=== PATIENT | female | born 1975 | race Caucasian/White ===

== ENCOUNTER 2017-02-26 15:46 | Emergency (ER) | payer OTHER ==
[2017-02-26] MEDS ORDERED: ONDANSETRON HCL/PF 2 MG/ML VIAL IV ONE (16:18)
[2017-02-26] MEDS ORDERED: NORMAL SALINE 1,000 ML IV ONE (16:18)
[2017-02-26] MEDS ORDERED: ONDANSETRON HCL/PF 2 MG/ML VIAL ONE (16:25)
[2017-02-26 16:39] LABS: Hematocrit 35.9 % (37.0-47.0); Hemoglobin 12.7 gm/dL (12.5-16.0); Mean Cell Volume 91.6 fl (78-100); Mean Corpuscular Hemoglobin 32.4 pg (27-31); Mean Corpuscular Hgb Conc 35.4 g/dl (32-36); Neutrophil # 2.8 K/mm3 (1.3-6.0); Neutrophil % 46.6 % (42-75.0); Platelet Count 214 K/mm3 (150-450); Red Blood Count 3.92 M/mm3 (4.2-5.4); White Blood Count 5.9 K/mm3 (4.0-10.5)
--- NOTE | 2017-02-26 16:41 | ERNOTE ---
GI Bleeding/Rectal Pain ER Presenting Symptoms: rectal bleeding Time Seen by Provider: 02/26/17 16:10 Source: patient Exam Limitations: no limitations Immunizations: IMMUNIZATION HX Immunizations Up to Date Yes History of Influenza Vaccine No Hx Pneumococcal Vaccination No Allergies/Adverse Reactions: Allergies No Known Allergies Allergy (Verified 02/26/17 15:56) Home Medications: HOME MEDICATIONS Naproxen [Naprosyn] 500 mg PO BID 06/26/15 [Last Taken Unknown] ALPRAZolam [Xanax] 0.5 mg PO Q8H PRN 09/28/15 [Last Taken Unknown] Lisinopril [Zestril] 10 mg PO DAILY 02/26/17 [Last Taken Unknown] Tramadol HCl [Rybix Odt] 50 mg PO TID 02/26/17 [Last Taken Unknown] Narrative: Patient had an episode of blood in the stool. Patient complains of only mild cramping pain and in no specific area in the abdomen Timing: other - improving Quality/Severity: Present: mild Nausea/Vomiting: Present: blood Abdominal Pain: Present: diffuse Rectal Bleeding: Present: blood mixed with stool Review of Systems - Review of Systems Constitutional: Present: See HPI EYE: Present: no symptoms reported ENT: Present: no symptoms reported Respiratory: Present: no symptoms reported Cardiology: Present: no symptoms reported Gastrointestinal/Abdominal: Present: other - blood and stool is noted Genitourinary: Present: no symptoms reported Musculoskeletal: Present: no symptoms reported Skin: Present: no symptoms reported Neurological: Present: no symptoms reported Endocrine: Present: no symptoms reported Hematologic/Lymphatic: Present: no symptoms reported Psych: Present: no symptoms reported - Patient's Past Medical History Patient History - Medical: Anxiety, Depression, Headache Patient History - Cardiac/Respiratory: No pertinent hx Patient History - Cancer: No Hx of Cancer Patient History - Surgical Procedures: D & C, Tubal Ligation, Other Patient History - Other: None LMP (females 10-50): Menopausal - Family History Mother Family History - Medical: History Unknown Family History - Cardiac/Respiratory: History Unknown Father Family History - Medical: History Unknown Family History - Cardiac/Respiratory: History Unknown - Social History Living Situations: home Abuse History: No History of abuse Psych History: Hx of Anxiety, Hx of Depression, Current tx/ever been on anti- depressants or anti-anxiety meds Smoking Status: Current every day smoker Have you smoked in the past 12 months: Yes Alcohol Use: rarely Drug Use: none - Immunizations Immunizations Up to Date: Yes Hx Pneumococcal Vaccination: No History of Influenza Vaccine: No Physical Exam - Physical Exam General Appearance: Present: wd/wn, alert, mild distress Eye Exam: Normal inspection: bilateral, PERRL: bilateral Ears, Nose, Throat: Present: normal ENT inspection, H, normal pharynx Neck: Present: normal inspection, nontender Respiratory: Present: no respiratory distress, normal breath sounds, no accessory muscle use, chest nontender, lungs clear Cardiovascular/Chest: Present: regular rate, rhythm, no murmur, normal peripheral pulses Gastrointestinal/Abdominal: Present: normal bowel sounds, nondistended, soft, no organomegaly, tenderness - generalized and diffuse Rectal Exam: Present: blood-streaked stool, hemorrhoids Back Exam: Present: normal inspection, normal range of motion Extremity Exam: Present: normal inspection, non-tender, no edema, normal range of motion Neurological Exam: Present: alert, oriented, normal mood/affect Skin Exam: Present: normal color, warm/dry Lymphatic Exam: Present: no adenopathy ED Progress - Results and Orders Patient's Lab Results:: I have reviewed the patient's lab results. - Vital Signs Patient's Vital Signs:: I have reviewed the patient's vital signs. Vital Signs: Vital Signs 02/26/17 15:52 Temperature 36.3 C L Pulse Rate 72 Respiratory 16 Rate Blood Pressure 157/89 O2 Sat by Pulse 99 Oximetry - X-Ray X-Ray #1 X-Ray: abdomen Interpretation: Reviewed by me - Progress/Reassessment Chief Complaint: GI Bleed Plan - Plan Plan: Patient's H&H is stable as are her vital signs, and I discussed the case with Dr. Velazquez and he will arrange for a colonoscopy on her as soon as possible. Departure Clinical Impression: Rectal bleed - Departure Disposition: Home self-care Condition: Good Instructions: Hemorrhoids, [id number] Additional Instructions: Call Dr. Vealzquez in the morning for an appointment Referrals: Herlinda Morfin MD [Primary Care Provider] - Fady Velazquez MD [Associate] -
[2017-02-26 16:57] LABS: BUN/Creatinine Ratio 19.1 (9.0-21.6)
[2017-02-26 16:58] LABS: Albumin * 3.9 gm/dl (3.4-5.0); Anion Gap 10.3 mmol/L (6.8-13.8); Bilirubin, Total 0.4 mg/dL (0.0-1.1); Ca. Corrected For Albumin 8.6 mg/dL (8.4-10.2); Calcium * 8.8 mg/dL (7.9-10.9); Carbon Dioxide 28.7 mmol/L (24-32.6); Magnesium 1.9 mg/dL (1.2-2.8)
[2017-02-26 17:34] LABS: Urine Appearance Cloudy; Urine Bacteria 4+; Urine Bilirubin Negative (NEGATIVE); Urine Blood Negative /ul (NEGATIVE); Urine Color Yellow; Urine Ketone Negative (NEGATIVE); Urine Nitrite Positive (NEGATIVE); Urine Protein Negative (NEGATIVE); Urine RBC None Seen /hpf (0-5); Urine Urobilinogen Normal (NORMAL); Urine WBC 0-5 /hpf (0-5)
[2017-02-26 18:12] VITALS: BP 136/85
== END 2017-02-26 19:10 | disposition home or self-care (01) ==
LOC: ER 15:46
DX: K62.5 Hemorrhage of anus and rectum (principal); F17.200 Nicotine dependence, unspecified, uncomplicated; F41.9 Anxiety disorder, unspecified; F32.9 Major depressive disorder, single episode, unspecified; R10.9 Unspecified abdominal pain
CPT/HCPCS: 36415; 74020; 80053; 81001; 82272; 83690; 83735; 84703; 85025; 87077; 87086; 87186; 96374; 99284; J2405

== ENCOUNTER 2017-04-08 10:57 | Day surgery (SDC) | payer OTHER ==
[~2017-04-08 10:57] MED LIST: RINGER'S SOLUTION,LACTATED 1,000 ML IV PRN
[2017-04-08] MEDS ORDERED: RINGER'S SOLUTION,LACTATED 1,000 ML IV ONE (11:30)
--- NOTE | 2017-04-08 13:15 | OR ---
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 Description of procedure: After informed consent and appropriate sedation the patient was placed in the left lateral decubitus position. A flexible fiberoptic video colonoscope was introduced and advanced under direct vision without difficulty to the cecum. The usual landmarks were identified. Preparation was excellent and excellent views were obtained. The findings were of a normal cecum, ascending colon, hepatic flexure, transverse colon, splenic flexure, descending colon, sigmoid colon, and rectum. A retroflexed view demonstrated internal hemorrhoids. She was noted to have an anterior hemorrhoidal skin tag as well. The mucosal color, vasculature, and texture were normal throughout. No suspicious masses were seen. The patient tolerated the procedure well without apparent complications and was discharged from the endoscopy suite in stable condition.
[2017-04-08 13:56] VITALS: BP 134/84
== END 2017-04-08 10:58 | disposition home or self-care (01) ==
LOC: AMB 10:57
PROVIDERS: ATTEND Specialist
PROC: 0DJD8ZZ Inspection of Lower Intestinal Tract, Via Natural or Artificial Opening Endoscopic (ICD-10-PCS; principal; 2017-04-08 13:00)
DX: K64.8 Other hemorrhoids (principal); I10 Essential (primary) hypertension; E55.9 Vitamin D deficiency, unspecified; F41.9 Anxiety disorder, unspecified; F32.9 Major depressive disorder, single episode, unspecified; F17.200 Nicotine dependence, unspecified, uncomplicated; Z68.30 Body mass index [BMI] 30.0-30.9, adult